=== PATIENT | male | born 1985 | race Caucasian/White ===

== ENCOUNTER 2023-10-03 09:14 | Emergency (ER) | payer MEDICAID ==
[~2023-10-03] VITALS: Ht 180.3 cm; Wt 90.7 kg
[2023-10-03 09:15] VITALS: BP_SYST 126; PULSE 71; RESP 19; TEMP 97.5; O2SAT 99
[2023-10-03 10:02] LABS: BASOPHILS % (AUTO) 0.3 % (0.0-2.0); EOSINOPHILS # (AUTO) 0.2 K/uL (0.0-0.4); EOSINOPHILS % (AUTO) 2.4 % (0.0-4.0); HEMATOCRIT 42.5 % (36-54); HEMOGLOBIN 14.5 g/dL (14.0-18.0); LYMPHOCYTES # (AUTO) 2.3 K/uL (1.0-5.5); LYMPHOCYTES % (AUTO) 29.4 % (20.5-51.5); MEAN CORPUSCULAR HEMOGLOBIN 32 pg (27-31); MEAN CORPUSCULAR HGB CONC 34 % (32-36); MEAN CORPUSCULAR VOLUME 94 fL (79.0-98.0); MONOCYTES # (AUTO) 0.6 K/uL (0.0-1.0); MONOCYTES % (AUTO) 7.5 % (1.7-9.3); NEUTROPHILS # (AUTO) 4.8 K/uL (1.8-7.7); NEUTROPHILS % (AUTO) 60.4 % (40.0-70.0); PLATELET COUNT (AUTO) 249 K/uL (130-430); RED BLOOD CELL COUNT(AUTO) 4.51 MIL/uL (4.2-6.2); RED CELL DISTRIBUTION WIDTH 14.1 % (9.0-15.0); WHITE BLOOD COUNT (AUTO) 7.9 K/uL (4.8-10.8)
[2023-10-03] MEDS: DEXAMETHASONE SOD PHOSPHATE 10 MG/ML VIAL IM ONE (10:05)
[2023-10-03] MEDS: DIPHENHYDRAMINE HCL 50 MG CAPSULE PO ONE (10:05)
[2023-10-03] MEDS: FAMOTIDINE 20 MG TABLET PO ONE (10:05)
[2023-10-03 10:14] LABS: CALCIUM 8.5 mg/dL (8.4-11.0); CREATININE 0.88 mg/dL (0.55-1.30); POTASSIUM 4.1 mmol/L (3.5-5.1)
[2023-10-03] MEDS ORDERED: FAMO40TA71 PO (10:57)
[2023-10-03] MEDS ORDERED: DIPH25CA83 PO (10:57)
[2023-10-03] MEDS ORDERED: METH-776 PO (10:57)
== END 2023-10-03 11:17 | disposition home or self-care (01) ==
LOC: SED 09:14
DX: R21 Rash and other nonspecific skin eruption (principal); T78.49XA Other allergy, initial encounter; F15.90 Other stimulant use, unspecified, uncomplicated; Z91.030 Bee allergy status; X58.XXXA Exposure to other specified factors, initial encounter
CPT/HCPCS: 99283; 80048; 85025; 36415; 96372; Q0163; J1100